=== PATIENT | female | born 1990 | race Caucasian/White ===

== ENCOUNTER 2018-10-07 22:43 | Inpatient (IN) | payer OTHER ==
[~2018-10-07] VITALS: Ht 160 cm; Wt 72.0 kg
[~2018-10-07 22:43] MED LIST: CEPH-443 PO; CEPH500C PO; FERR134T PO; FOLI0.4T2 PO; PREN-19 PO
[2018-10-07 23:49] VITALS: BP 104/63; PULSE 71; RESP 16
[2018-10-08] MEDS ORDERED: LACTATED RINGER'S 1,000 ML IV PRN (00:48)
[2018-10-08] MEDS ORDERED: AMPICILLIN 2 GM/NS (PMX) 100 ML IV ONE (01:00)
[2018-10-08] MEDS ORDERED: IBUPROFEN 600 MG TAB PO PRN (01:00)
[2018-10-08] MEDS ORDERED: OXYTOCIN 30 UNITS/LR 500 ML IV PRN (01:00)
[2018-10-08] MEDS ORDERED: METHYLERGONOVINE 0.2 MG INJ IM PRN (01:00)
[2018-10-08] MEDS ORDERED: OXYTOCIN 30 UNITS/LR 500 ML IV SCH ×3 (01:00→08:30)
[2018-10-08] MEDS ORDERED: MISOPROSTOL 200 MCG TAB PR PRN (01:00)
[2018-10-08] MEDS ORDERED: CARBOPROST 250 MCG INJ IM PRN (01:00)
[2018-10-08] MEDS ORDERED: BUTORPHANOL 2 MG INJ IV PRN ×2 (01:00)
[2018-10-08] MEDS ORDERED: LIDOCAINE 1% (MPF) 30 ML INJ INJ PRN (01:00)
[2018-10-08] MEDS: LACTATED RINGER'S 1,000 ML IV SCH ×3 (01:24→11:17)
[2018-10-08] MEDS: AMPICILLIN 1 GM/NS (PMX) 50 ML IV SCH ×4 (05:29→17:53)
[2018-10-08] MEDS ORDERED: FENTAnyl 2MCG/ML-ROPIV 0.2% 100 ML ONE (14:05)
[2018-10-08] MEDS ORDERED: FENTAnyl 2MCG/ML-ROPIV 0.2% 100 ML BAG EPI SCH (14:30)
[2018-10-08] MEDS ORDERED: DIPHENHYDRAMINE 50 MG INJ IV PRN (14:30)
[2018-10-08] MEDS ORDERED: ONDANSETRON 4 MG INJ IV PRN (14:30)
[2018-10-08] MEDS ORDERED: NALOXONE (0.4 MG/ML) INJ IV PRN (14:30)
[2018-10-08] MEDS ORDERED: MINERAL OIL LIGHT 10 ML VIAL TOP PRN (21:30)
[2018-10-08] MEDS ORDERED: ACETAMINOPHEN 325 MG TAB PO PRN (22:30)
[2018-10-09 01:20] VITALS: BP 108/53; PULSE 72; RESP 20
[2018-10-09] MEDS ORDERED: LACTATED RINGER'S 1,000 ML IV* SCH (01:36)
[2018-10-09] MEDS ORDERED: DEXTROSE 5%-LR 1,000 ML IV SCH (01:36)
[2018-10-09] MEDS ORDERED: MAGNESIUM HYDROXIDE 30ML CUP PO PRN (02:00)
[2018-10-09] MEDS ORDERED: DIBUCAINE 1% 30 GM OINT TOP PRN (02:00)
[2018-10-09] MEDS ORDERED: ACETAMINOPHEN 325 MG TAB PO PRN (02:00)
[2018-10-09] MEDS ORDERED: CARBOPROST 250 MCG INJ IM PRN (02:00)
[2018-10-09] MEDS ORDERED: MISOPROSTOL 200 MCG TAB PR PRN (02:00)
[2018-10-09] MEDS ORDERED: METHYLERGONOVINE 0.2 MG INJ IM PRN (02:00)
[2018-10-09] MEDS ORDERED: ZOLPIDEM 5 MG TAB PO PRN (02:00)
[2018-10-09] MEDS ORDERED: OXYTOCIN 30 UNITS/LR 500 ML IV PRN (02:00)
[2018-10-09] MEDS ORDERED: DIPHENHYDRAMINE 50 MG INJ IV PRN (02:00)
[2018-10-09] MEDS ORDERED: ONDANSETRON 4 MG INJ IV PRN (02:00)
[2018-10-09] MEDS ORDERED: OXYCODONE/ASPIRIN (4.88/325) TAB PO PRN (02:00)
[2018-10-09 04:00] VITALS: BP 105/53; PULSE 70; RESP 19
[2018-10-09] MEDS: IBUPROFEN 600 MG TAB PO SCH ×4 (05:18→23:33)
[2018-10-09] MEDS: WITCH HAZEL/GLYCERIN PAD PR PRN ×2 (05:19→08:50)
[2018-10-09] MEDS: BENZOCAINE 20% 56 ML SPRAY TOP PRN ×2 (05:19→08:49)
[2018-10-09] MEDS: LANOLIN HPA 1 PKT TOP PRN ×2 (05:19→08:49)
[2018-10-09 08:30] VITALS: BP 94/50; PULSE 73; RESP 14
[2018-10-09] MEDS: SENNA/DOCUSATE NA (8.6MG/50MG) TAB PO PRN ×2 (08:49→22:18)
[2018-10-09] MEDS: CEPHALEXIN 500 MG CAP PO SCH ×3 (11:46→23:33)
[2018-10-09 11:52] VITALS: BP 104/55; PULSE 68; RESP 14
[2018-10-09 16:49] VITALS: BP 100/53; PULSE 73; RESP 16
[2018-10-09 20:30] VITALS: BP 103/79; PULSE 68; RESP 18
[2018-10-09] MEDS ORDERED: DIPHENHYDRAMINE 50 MG CAP PO PRN (20:30)
[2018-10-10 03:34] VITALS: BP 103/59; PULSE 53; RESP 18
[2018-10-10] MEDS: CEPHALEXIN 500 MG CAP PO SCH ×2 (05:34→12:25)
[2018-10-10] MEDS: IBUPROFEN 600 MG TAB PO SCH ×2 (05:34→12:26)
[2018-10-10 08:00] VITALS: BP 110/84; PULSE 66; RESP 18
[2018-10-10] MEDS ORDERED: DIPHTH/TET/ACEL PERTUSS (ADULT) 0.5 ML VIAL IM* ONE (09:00)
[2018-10-10] MEDS ORDERED: MEASLES,MUMPS,RUBELLA VACCINE INJ SC* ONE (09:00)
[2018-10-10] MEDS: WITCH HAZEL/GLYCERIN PAD PR PRN (12:24)
[2018-10-10] MEDS: LANOLIN HPA 1 PKT TOP PRN (12:24)
[2018-10-10] MEDS: BENZOCAINE 20% 56 ML SPRAY TOP PRN (12:31)
== END 2018-10-10 18:00 | disposition home or self-care (01) | DRG 807 ==
LOC: OBT 22:43 → L-D 22:44 → OBT 10-08 00:05 → L-D 10-08 00:05 → PP1 10-09 01:23
PROVIDERS: ADMIT Obstetrics & Gynecology; ATTEND Obstetrics & Gynecology
PROC: 10E0XZZ Delivery of Products of Conception, External Approach (ICD-10-PCS; principal; 2018-10-08)
PROC: 0W8NXZZ Division of Female Perineum, External Approach (ICD-10-PCS; 2018-10-08)
DX: O80 Encounter for full-term uncomplicated delivery (principal); Z37.0 Single live birth; Z3A.38 38 weeks gestation of pregnancy
CPT/HCPCS: 62322; 81001; 85025; 85610; 85730; 86592; 86850; 86900; 86901; 87086; 87340; 90715; 99464; G0463; J0290; J2590; J3010; J7120; J7121